=== PATIENT | male | born 1960 | race Asian ===

== ENCOUNTER 2019-02-16 16:35 | Inpatient (IN) | payer BC, OTHER ==
[~2019-02-16] VITALS: Ht 167.6 cm; Wt 62.0 kg
[~2019-02-16 16:35] MED LIST: VITAMINS DAILY
--- NOTE | 2019-02-16 19:58 | ERD ---
ER Documentation Chief Complaint Chief Complaint SIGNIFICANT BRIGHT RED BLOOD IN STOOL X 6 TIMES TODAY HPI The patient is a 58-year-old male, presenting to the ER because of bright red blood to 6 times today at home and 2 times in the ER. It all began about 3:3p pm today. He denies constipation, diarrhea, fever, chills, neck pain, chest pain, dyspnea, complains of vague abdominal pain, denies dysuria. He does not smoke, drinks socially Medical history/surgical history: None ROS All systems reviewed and are negative except as per history of present illness. Medications Home Meds Discontinued Reported Medications [Vitamins Daily] No Conflict Check 12/13/14 Allergies Allergies: Coded Allergies: No Known Drug Allergies (Unverified Allergy, Unknown, 02/16/19) PMhx/Soc History of Surgery: No Anesthesia Reaction: No Hx Neurological Disorder: No Hx Respiratory Disorders: No Hx Cardiac Disorders: No Hx Psychiatric Problems: No Hx Miscellaneous Medical Probl: No Hx Alcohol Use: Yes Hx Substance Use: No Hx Tobacco Use: No Physical Exam Vitals Vital Signs Date Temp Pulse Resp B/P (MAP) Pulse Ox O2 O2 Flow FiO2 Time Delivery Rate 02/16/19 100.8 108 16 184/99 99 16:52 (127) Physical Exam Const: No acute distress. Head: Atraumatic. Eyes: Normal Conjunctiva. ENT: Normal External Ears, Nose and Mouth. Neck: Full range of motion. No meningismus. Resp: Clear to auscultation bilaterally. Cardio: Regular rate and rhythm. Abd: Soft, non distended, normal bowel sounds, vague abdominal discomfort. Skin: No petechiae or rashes. Back: No midline or flank tenderness. Ext: No cyanosis, or edema. Neur: Awake and alert. No focal deficit Psych: Normal Mood and Affect. Rectal: No external hemorrhoid Result Diagram: 02/16/19200802/16/192008 Results 24 hrs Laboratory Tests Test 02/16/19 20:09 02/16/19 22:41 White Blood Count 10.2 10^3/ul Red Blood Count 4.51 10^6/ul Hemoglobin 13.4 g/dl Hematocrit 41.0 % Mean Corpuscular Volume 90.9 fl Mean Corpuscular Hemoglobin 29.7 pg Mean Corpuscular Hemoglobin Concent 32.7 g/dl Red Cell Distribution Width 11.9 % Platelet Count 229 10^3/UL Mean Platelet Volume 9.4 fl Immature Granulocytes % 0.600 % Neutrophils % 79.3 % Lymphocytes % 12.3 % Monocytes % 7.2 % Eosinophils % 0.3 % Basophils % 0.3 % Nucleated Red Blood Cells % 0.0 /100WBC Immature Granulocytes # 0.060 10^3/ul Neutrophils # 8.1 10^3/ul Lymphocytes # 1.3 10^3/ul Monocytes # 0.7 10^3/ul Eosinophils # 0.0 10^3/ul Basophils # 0.0 10^3/ul Nucleated Red Blood Cells # 0.0 10^3/ul Prothrombin Time 13.3 Sec Prothrombin Time Ratio 1.0 INR International Normalized Ratio 1.00 Activated Partial Thromboplast Time 28.5 Sec Sodium Level 139 mmol/L Potassium Level 3.9 mmol/L Chloride Level 104 mmol/L Carbon Dioxide Level 24 mmol/L Anion Gap 11 Blood Urea Nitrogen 13 mg/dl Creatinine 0.76 mg/dl Est Glomerular Filtrat Rate mL/min > 60 mL/min Glucose Level 151 mg/dl Calcium Level 9.2 mg/dl Total Bilirubin 0.7 mg/dl Direct Bilirubin 0.00 mg/dl Indirect Bilirubin 0.7 mg/dl Aspartate Amino Transf (AST/SGOT) 23 IU/L Alanine Aminotransferase (ALT/SGPT) 33 IU/L Alkaline Phosphatase 70 IU/L Troponin I < 0.012 ng/ml Total Protein 7.9 g/dl Albumin 4.7 g/dl Globulin 3.20 g/dl Albumin/Globulin Ratio 1.46 Urine Color YELLOW Urine Clarity CLEAR Urine pH 5.0 Urine Specific [place] 1.027 Urine Ketones NEGATIVE mg/dL Urine Nitrite NEGATIVE mg/dL Urine Bilirubin NEGATIVE mg/dL Urine Urobilinogen NEGATIVE mg/dL Urine Leukocyte Esterase NEGATIVE [place]/ul Urine Hemoglobin NEGATIVE mg/dL Urine Glucose NEGATIVE mg/dL Urine Total Protein NEGATIVE mg/dl Current Medications Medications Dose Sig/Nancy Start Time Status Last (Trade) Ordered Route PRN Stop Time Admin Dose Reason Admin Sodium 1,860 ml BOLUS OVER 2 02/16/19 DC 02/16/19 Chloride HOURS STAT 20:07 20:36 (NS) IV* 02/16/19 20:09 IV Flush 10 ml STK-MED 02/16/19 DC (NS 10 ml) ONCE .ROUTE 21:33 02/16/19 21:34 Sodium 100 ml @ ud STK-MED 02/16/19 DC Chloride ONCE .ROUTE 21:33 02/16/19 21:34 Iohexol 150 ml STK-MED 02/16/19 DC (Omnipaque ONCE .ROUTE 21:33 300mg/ ml) 02/16/19 21:34 Piperacillin 100 ml @ ONCE ONCE 02/16/19 UNV Sod/ 200 mls/hr IVPB 23:00 Tazobactam 02/16/19 23:29 Sod Procedures/MDM [place] [address] Radiology Main Line: [phone] DIAGNOSTIC IMAGING REPORT Patient: JORGITO MCKEON : 1960 Age: 58 Sex: M MR #: [id number] DOS: 02/16/192006 Ordering MD: LINDA STOKES MD Location: E/R Room/Bed: PROCEDURE: CT Abdomen and Pelvis With Intravenous Contrast CLINICAL INDICATION: Abdominal pain. Blood in stool. TECHNIQUE: Axial computed tomography images of the abdomen and pelvis with intravenous contrast. Sagittal and coronal reformatted images were created and reviewed. CTDIvol (mGy) = 4.72; total DLP (mGy-cm) = 273.09. This CT exam was performed using one or more of the following dose reduction techniques: automated exposure control, adjustment of the mA and/or kV according to patient size, and/or use of iterative reconstruction technique. DICOM images are available. CONTRAST: 80 mL of Omnipaque 300 was administered intravenously. COMPARISON: None FINDINGS: LUNG BASES: Unremarkable. No mass. No consolidation. ABDOMEN: LIVER: Several small hypodensities measuring up to 7 mm in diameter are scattered throughout the liver, likely representing small hepatic cysts. No acute hepatic abnormality is demonstrated. GALLBLADDER AND BILE DUCTS: Unremarkable. No calcified stones. No ductal dilation. PANCREAS: Unremarkable. No mass. No ductal dilation. SPLEEN: Unremarkable. No splenomegaly. ADRENALS: Unremarkable. No mass. KIDNEYS AND URETERS: Unremarkable. No solid mass. No hydronephrosis. STOMACH AND BOWEL: Mural thickening of the gastric antrum. This is suggestive of nonspecific gastritis. No gross focal ulcers are seen in this area. Mild mural thickening, mucosal enhancement, and air-fluid levels are noted in the descending and rectosigmoid portions of the colon, suspicious for nonspecific colitis. Mild diverticulosis of the colon. No findings of acute diverticulitis. No acute abnormality of the small bowel. No obstruction. PELVIS: APPENDIX: No findings to suggest acute appendicitis. BLADDER: Unremarkable. No mass. REPRODUCTIVE: Unremarkable as visualized. ABDOMEN and PELVIS: INTRAPERITONEAL SPACE: Unremarkable. No free air. No significant fluid collection. BONES/JOINTS: No acute fracture. No dislocation. SOFT TISSUES: Unremarkable. VASCULATURE: The abdominal aorta is atherosclerotic. No aneurysm. LYMPH NODES: Unremarkable. No enlarged lymph nodes. IMPRESSION: 1. Mural thickening of the gastric antrum. This is suggestive of nonspecific gastritis. No gross focal gastric ulcers are seen in this area. 2. Mild mural thickening, mucosal enhancement, and air-fluid levels are noted in the descending and rectosigmoid portions of the colon, suspicious for nonspecific colitis. 3. Mild diverticulosis of the colon. No findings of acute diverticulitis. 4. Several small hypodensities measuring up to 7 mm in diameter are scattered throughout the liver, likely representing small hepatic cysts. No acute abnormality demonstrated of the solid abdominal organs. RPTAT: [facility] David Magdaleno Physician Date Time Electronically viewed and signed by David Magdaleno Physician Tool Straightener on 02/16/2019 22:34 RmC/ CC: LINDA STOKES MD [id number] [place] [address] Radiology Main Line: [phone] DIAGNOSTIC IMAGING REPORT Patient: JORGITO MCKEON : 1960 Age: 58 Sex: M MR #: [id number] DOS: 02/16/192006 Ordering MD: LINDA STOKES MD Location: E/R Room/Bed: PROCEDURE: XR 1 view Chest. CLINICAL INDICATION: Sepsis. TECHNIQUE: Portable Single frontal view of the chest was obtained. COMPARISON: There are no similar studies submitted for comparison. FINDINGS: The heart is normal in size. There are mild aortic calcifications. There is no focal consolidation. There is no pleural effusion. No pneumothorax is identified. The osseous structures are intact. There is mild to moderate spondylosis/enthesopathy within the thoracic spine. IMPRESSION: No evidence for acute cardiopulmonary disease. Aortic calcifications. Further findings as detailed above. RPTAT: [facility] .Yoan Og MD, MD Date Time Electronically viewed and signed by .Yoan Og MD, MD on 02/16/2019 20:57 .F/ CC: LINDA STOKES MD [phone] MEDICAL MAKING DECISION: The patient is a 58-year-old male, presenting with acute colitis with moderate amount of rectal bleeding. He was treated with normosaline 30 mm/kg IV for clinical dehydration, Zosyn IV for acute colitis with good response. The differential diagnoses considered include but are not limited to the diverticulitis, AVM, GI malignancy, carcinoma, polyp, hemorrhoid, fissure, diverticulosis, angiodysplasia. Departure Diagnosis: Primary Impression: Colitis Additional Impression: Anemia Condition: Stable Comments I discussed the findings with the patient. I discussed the patient with the hospitalist Dr Bella at 11 pm who was made aware of the lab, the treatment, the patient condition. The patient is admitted to [facility] Disclaimer: Inadvertent spelling and grammatical errors are likely due to EHR/dictation software use and do not reflect on the overall quality of patient care. Also, please note that the electronic time recorded on this note does not necessarily reflect the actual time of the patient encounter. LINDA STOKES MD Feb 16, 2019 19:58
[2019-02-16] MEDS ORDERED: SODIUM CHLORIDE 0.9% 1L BAG IV* STA (20:07)
[2019-02-16] MEDS ORDERED: SOD CHLORIDE 0.9% 100 ML ONE (21:33)
[2019-02-16] MEDS ORDERED: IOHEXOL 300MG/ML 150 ML BTL ONE (21:33)
[2019-02-16 23:00] VITALS: BP 108/66; PULSE 103; RESP 20
[2019-02-16] MEDS ORDERED: PIPER-TAZO 3.375 GM IV (PMX) 100 ML IVPB ONE (23:00)
[2019-02-16] MEDS: SOD CHLORIDE 0.9% 1,000 ML IV SCH (23:22)
[2019-02-16] MEDS ORDERED: HYDROmorphONE 0.5 MG/0.5 ML SYG IV PRN (23:30)
[2019-02-16] MEDS ORDERED: ACETAMINOPHEN 325 MG TAB PO PRN (23:30)
[2019-02-16] MEDS ORDERED: DOCUSATE SODIUM 100 MG CAP PO PRN (23:30)
[2019-02-16] MEDS ORDERED: NACL 0.9% 3 ML SYG IV SCH (23:30)
[2019-02-16] MEDS ORDERED: BISACODYL (EC) 5 MG TAB PO PRN (23:30)
[2019-02-16] MEDS ORDERED: ONDANSETRON 4 MG INJ IV PRN (23:30)
[2019-02-17 00:24] VITALS: Ht 167.6 cm; Wt 62.0 kg
--- NOTE | 2019-02-17 06:20 | HP ---
Date/Time of Note Date/Time of Note DATE: 02/17/19 TIME: 06:15 Assessment/Plan VTE Prophylaxis SCD applied (from Nsg): Yes Pharmacological prophylaxis: NA/contraindicated Pharm contraindication: low risk/ambulating Lines/Catheters IV Catheter Type (from Nrsg): Peripheral IV Assessment/Plan Hospital Course This is a 58-year-old male being admitted to the [facility] floor for: #1 bright red blood per rectum: CT scan shows some mild mural wall thickening and nonspecific signs of colitis. At the current time we will trend CBC every 6 hours. Will check stool studies, fecal leukocytes, stool occult blood. Also check a ANCA. Will consult GI #2: sepsis: suspect GI source. blood cx ordered, will check stool studies. broad spectrum abx. #3 DVT GI prophylaxis: SCDs, no GI prophylaxis indicated Further treatment strategy will be implemented as per the clinical course. Result Diagram: 02/16/19200802/16/192008 Results 24hrs Laboratory Tests Test 02/16/19 20:09 02/16/19 22:41 02/17/19 01:01 White Blood Count 10.2 Red Blood Count 4.51 L Hemoglobin 13.4 L Hematocrit 41.0 L Mean Corpuscular Volume 90.9 Mean Corpuscular Hemoglobin 29.7 Mean Corpuscular Hemoglobin Concent 32.7 Red Cell Distribution Width 11.9 Platelet Count 229 Mean Platelet Volume 9.4 Immature Granulocytes % 0.600 H Neutrophils % 79.3 H Lymphocytes % 12.3 L Monocytes % 7.2 Eosinophils % 0.3 Basophils % 0.3 Nucleated Red Blood Cells % 0.0 Immature Granulocytes # 0.060 H Neutrophils # 8.1 H Lymphocytes # 1.3 Monocytes # 0.7 Eosinophils # 0.0 Basophils # 0.0 Nucleated Red Blood Cells # 0.0 Prothrombin Time 13.3 Prothrombin Time Ratio 1.0 INR International Normalized Ratio 1.00 Activated Partial Thromboplast Time 28.5 Sodium Level 139 Potassium Level 3.9 Chloride Level 104 Carbon Dioxide Level 24 Anion Gap 11 Blood Urea Nitrogen 13 Creatinine 0.76 Est Glomerular Filtrat Rate mL/min > 60 Glucose Level 151 Calcium Level 9.2 Total Bilirubin 0.7 Direct Bilirubin 0.00 Indirect Bilirubin 0.7 Aspartate Amino Transf (AST/SGOT) 23 Alanine Aminotransferase (ALT/SGPT) 33 Alkaline Phosphatase 70 Troponin I < 0.012 Total Protein 7.9 Albumin 4.7 Globulin 3.20 Albumin/Globulin Ratio 1.46 Urine Color YELLOW Urine Clarity CLEAR Urine pH 5.0 Urine Specific [place] 1.027 Urine Ketones NEGATIVE Urine Nitrite NEGATIVE Urine Bilirubin NEGATIVE Urine Urobilinogen NEGATIVE Urine Leukocyte Esterase NEGATIVE Urine Hemoglobin NEGATIVE Urine Glucose NEGATIVE Urine Total Protein NEGATIVE Lactic Acid Level 1.1 HPI/ROS Admit Date/Time Admit Date/Time Feb 16, 2019 at 22:59 Hx of Present Illness Chief complaint: Bright red blood per rectum this is a 58-year-old male with no past medical history who presented to the emergency department with symptoms of bright red blood per rectum. Patient states that yesterday he started having episodes of bright red blood per rectum starting at approximately 3 PM. He had 6 episodes occur at home. In the emergency department patient proceeded to have 3 more episodes of bright red blood per rectum. He denies any abdominal pain. Denies any nausea or vomiting. He states that he traveled to the [facility] in November and did have a cold over there but otherwise has not had any recent illnesses. Patient reports he last had a colonoscopy in 2016 and it was within normal values according to him. He does report that he had some lower back pain yesterday as well however he is not sure if that is from the gardening that he did. Allergies: NKDA Medications: None ROS Const: As per HPI Eyes : No pain discharge or redness or change in visual acuity ENT: No pain, sore throat, congestion, congestion, dysphagia or discharge Respiratory: No shortness of breath, cough, sputum, wheezing, or pleuritic pain Cardiovascular: No chest pain, palpitation, PND, or edema GI : As per HPI Genitourinary: No dysuria, hematuria, flank pain , discharge or CVA tenderness Musculoskeletal: No joint pain, back pain, neck pain, restricted range of motion in neck or joints Skin: No rash, bruising or hives Neuro: No headache, dizziness, syncope, seizure, focal weakness Endocrine: No polyuria, polydipsia, temperature intolerance Psych: No hallucination, depression, anxiety or suicidal ideation PMH/Family/Social Past Medical History Medical History: no pertinent history Medications Current Medications Sodium Chloride 1,000 ml @ 100 mls/hr Q10H IV Last administered on 02/16/19at 23:22; Admin Dose 100 MLS/HR; Start 02/16/19 at 23:02 IV Flush (NS 3 ml) 3 ml PER PROTOCOL IV ; Start 02/16/19 at 23:30 Ondansetron HCl (Zofran Inj) 4 mg Q6H PRN IV NAUSEA/VOMITING; Start 02/16/19 at 23:30 Acetaminophen (Tylenol Tab) 650 mg Q6H PRN PO .PAIN 1-3 OR TEMP; Start 02/16/19 at 23:30 Hydromorphone HCl (Dilaudid) 0.5 mg Q4H PRN IV .SEVERE PAIN 7-10; Start 02/16/19 at 23:30 Docusate Sodium (Colace) 100 mg Q12H PRN PO .CONSTIPATION; Start 02/16/19 at 23:30 Bisacodyl (Dulcolax) 5 mg DAILY PRN PO .CONSTIPATION; Start 02/16/19 at 23:30 Coded Allergies: No Known Drug Allergies (Unverified Allergy, Unknown, 02/16/19) Past Surgical History Past Surgical Hx: no surgical history Family History Significant Family History: no pertinent family hx Social History Alcohol Use: occasionally Smoking Status: Never smoker Drug Use: none Exam/Review of Systems Vital Signs Vitals Vital Signs Date Temp Pulse Resp B/P (MAP) Pulse Ox O2 O2 Flow FiO2 Time Delivery Rate 02/16/19 98.4 82 16 102/68 98 Room Air 23:52 (79) Exam Exam General: Patient is a pleasant male currently lying in bed in no acute distress HEENT: Atraumatic, normocephalic. The pupils are equal, round and reactive. Extraocular motor are intact Neck: Supple with full range of motion. No rigidity or meningismus Chest: Nontender Lungs: Clear to auscultation bilaterally no crackles rales or wheezing Heart: Normal S1-S2, Regular rhythm and rate. No murmur, S3, or S4 Musculoskeletal: Mild tenderness palpation over the lumbar spine Abdomen: Soft , nontender, nondistended , bowel sounds are present. No guarding no rebound tenderness , No masses or organomegaly. No costovertebral temporal angle mass Extremities: Normal to inspection, no edema no cyanosis Neurologic: Normal mental status, speech normal, cranial nerves II through XII are intact, motor and sensory are intact, Patient did show me a picture on his phone of his bloody bowel movement which did appear to be significant. Additional Comments PROCEDURE: CT Abdomen and Pelvis With Intravenous Contrast CLINICAL INDICATION: Abdominal pain. Blood in stool. TECHNIQUE: Axial computed tomography images of the abdomen and pelvis with intravenous contrast. Sagittal and coronal reformatted images were created and reviewed. CTDIvol (mGy) = 4.72; total DLP (mGy-cm) = 273.09. This CT exam was performed using one or more of the following dose reduction techniques: automated exposure control, adjustment of the mA and/or kV according to patient size, and/or use of iterative reconstruction technique. DICOM images are available. CONTRAST: 80 mL of Omnipaque 300 was administered intravenously. COMPARISON: None FINDINGS: LUNG BASES: Unremarkable. No mass. No consolidation. ABDOMEN: LIVER: Several small hypodensities measuring up to 7 mm in diameter are scattered throughout the liver, likely representing small hepatic cysts. No acute hepatic abnormality is demonstrated. GALLBLADDER AND BILE DUCTS: Unremarkable. No calcified stones. No ductal dilation. PANCREAS: Unremarkable. No mass. No ductal dilation. SPLEEN: Unremarkable. No splenomegaly. ADRENALS: Unremarkable. No mass. KIDNEYS AND URETERS: Unremarkable. No solid mass. No hydronephrosis. STOMACH AND BOWEL: Mural thickening of the gastric antrum. This is suggestive of nonspecific gastritis. No gross focal ulcers are seen in this area. Mild mural thickening, mucosal enhancement, and air-fluid levels are noted in the descending and rectosigmoid portions of the colon, suspicious for nonspecific colitis. Mild diverticulosis of the colon. No findings of acute diverticulitis. No acute abnormality of the small bowel. No obstruction. PELVIS: APPENDIX: No findings to suggest acute appendicitis. BLADDER: Unremarkable. No mass. REPRODUCTIVE: Unremarkable as visualized. ABDOMEN and PELVIS: INTRAPERITONEAL SPACE: Unremarkable. No free air. No significant fluid collection. BONES/JOINTS: No acute fracture. No dislocation. SOFT TISSUES: Unremarkable. VASCULATURE: The abdominal aorta is atherosclerotic. No aneurysm. LYMPH NODES: Unremarkable. No enlarged lymph nodes. IMPRESSION: 1. Mural thickening of the gastric antrum. This is suggestive of nonspecific gastritis. No gross focal gastric ulcers are seen in this area. 2. Mild mural thickening, mucosal enhancement, and air-fluid levels are noted in the descending and rectosigmoid portions of the colon, suspicious for nonspecific colitis. 3. Mild diverticulosis of the colon. No findings of acute diverticulitis. 4. Several small hypodensities measuring up to 7 mm in diameter are scattered throughout the liver, likely representing small hepatic cysts. No acute abnorm ality demonstrated of the solid abdominal organs. RPTAT: [facility] David Magdaleno Physician Ergonomics Technician Date Time Electronically viewed and signed by David Magdaleno, Physician Ergonomics Technician on 02/16/2019 22:34 RmC/ CC: LINDA STOKES MD [id number] PROCEDURE: XR 1 view Chest. CLINICAL INDICATION: Sepsis. TECHNIQUE: Portable Single frontal view of the chest was obtained. COMPARISON: There are no similar studies submitted for comparison. FINDINGS: The heart is normal in size. There are mild aortic calcifications. There is no focal consolidation. There is no pleural effusion. No pneumothorax is identified. The osseous structures are intact. There is mild to moderate spondylosis/enthesopathy within the thoracic spine. IMPRESSION: No evidence for acute cardiopulmonary disease. Aortic calcifications. Further findings as detailed above. RPTAT: [facility] .Yoan Og MD, Date Time Electronically viewed and signed by .Yoan Og MD, MD on 02/16/2019 20:57 .F/ CC: LINDA STOKES MD [id number] JAGUAR STREETER Feb 17, 2019 06:20
[2019-02-17 07:20] VITALS: BP 119/66; PULSE 67; RESP 18
[2019-02-17] MEDS: SOD CHLORIDE 0.9% 1,000 ML IV SCH ×2 (09:02→13:02)
[2019-02-17] MEDS ORDERED: POLYETHYLENE GLYCOL 3350 119 GM POWDER PO ONE ×4 (11:16→11:30)
--- NOTE | 2019-02-17 12:04 | CONS ---
DATE OF ADMISSION: 02/16/2019 DATE OF CONSULTATION: Dear Dr. Streeter: Thank you for asking me to see Mr. Maradiaga in GI consultation. As you know, patient is a 58-year-old Ethiopian gentleman started having bleeding from the rectum yest erday. He had a bright red blood from the rectum. Stool was not watery, is regular stools. No naus ea, no vomiting, no hematemesis, no history of prior problems of this kind. In 2017, he had a normal colonoscopy. REVIEW OF SYSTEMS: Essentially unremarkable. SOCIAL HISTORY: Drinks alcohol occasionally. He does not take any nonsteroidal anti-inflammatory dr ugs. He works as a caregiver. As far as the previous medical history is concerned, he has not had any surgery. MEDICATIONS PRIOR TO THIS ADMISSION: He does not take any medications as an outpatient. Currently, he is on: 1. Tylenol. 2. Dilaudid. 3. Dulcolax. 4. Colace. 5. Zofran. FAMILY HISTORY: No medical problems. PHYSICAL EXAMINATION: GENERAL: The patient is a 58-year-old Ethiopian gentleman who, at this time, is very alert, well buil t. VITAL SIGNS: Temperature 99, pulse is 67, blood pressure 119/66. CARDIOVASCULAR: Normal heart sounds. RESPIRATORY: Normal breath sounds. ABDOMEN: Showed unremarkable findings. CAT scan of the abdomen shows evidence of mural thickening o f the stomach, mural thickening of the colonic mucosa, in the area of the sigmoid colon and descendin g colon, mild diverticulosis noted, several small hypodensities noted in the liver which could be hep atic cysts. LABORATORY WORKUP: Hemoglobin dropped to 8.5 from 13.4. Coagulation: Prothrombin time 13.3, INR is 1.0, platelet count 174,000. IMAGING STUDIES: Chest x-ray is unremarkable except aortic calcification. CLINICAL IMPRESSION: The patient presenting with history of rectal bleeding. It is quite possible w e may be dealing with some kind of a colitis or diverticulosis, which could be the cause of the bleed ing. Colorectal neoplasm should be ruled out. He has got a gastric wall mural thickening, rule out gastritis or malignancy. PLAN: Recommend upper endoscopy as well as lower endoscopy. Once again, Dr. Streeter, thank you for this consultation. Dictated By: BONITA KINGSTON/ROOPA Conf#: [id number] DID#: [id number] CC: JAGUAR STREETER MD;*[facility]*
[2019-02-17 14:15] VITALS: BP 147/83; PULSE 70; RESP 16
--- NOTE | 2019-02-17 16:10 | PN ---
Date/Time of Note Date/Time of Note DATE: 02/17/19 TIME: 16:09 Assessment/Plan VTE Prophylaxis Risk score (from Ns)>0 risk: 0 SCD applied (from Ns): Yes Pharmacological prophylaxis: NA/contraindicated Pharm contraindication: bleeding Lines/Catheters IV Catheter Type (from [facility]): Peripheral IV Assessment/Plan Hospital Course SUBJECTIVE: Denies any abdominal pain. Patient getting blood transfusions. OBJECTIVE: Physical Exam General: Adequately build 58 year-old male lying in bed in no apparent distress. HEENT: Normocephalic, atraumatic. Eyes: Anicteric sclerae, conjunctivae clear. ENT: Nasal septum midline, oral mucosa moist. Neck supple, no JVD noticed. Respiratory: Bilaterally clear breath sounds. No use of accessory muscles of respiration. No adventitious breath sounds. Cardiovascular: S1, S2 heard. Regular rate and rhythm. Abdomen: Soft, nontender, and nondistended. Bowel sounds positive in all 4 quadrants. Genitourinary: Deferred. Extremities: No cyanosis, no clubbing, no edema. Peripheral pulses palpable. Neurologic: Cranial nerves II through XII grossly intact. The patient is awake, alert, and oriented. Skin: Normal skin turgor. No skin rashes. Labs & Vitals per chart ASSESSMENT & PLAN 58-year-old male who denied any significant past medical history, who came to the emergency room with chief complaint of bright red blood per rectum with CT scan of the abdomen and pelvis showing mild thickening of the gastric antrum, mild mural thickening, mucosal enhancement, and air-fluid levels noted in the descending and rectosigmoid portions of the colon, suspicious for nonspecific colitis. The patient was admitted to inpatient setting for further treatment and evaluation. 1. Hematochezia. -Etiology unclear. -Transfuse blood products as indicated. -Gastroenterology evaluation ongoing. -Plan for esophagogastroduodenoscopy and colonoscopy on 02/18/2019. -Continue antimicrobials for any underlying colitis. Stool studies pending. 2. Anemia of acute blood loss. -Continue to transfuse blood products as needed. 3. Fluids, electrolytes, and nutrition. -Clear liquid diet. -N.p.o. after midnight. 4. DVT prophylaxis. -Bilateral SCDs 5. Plan. -Continue to monitor H&H closely. -Replace blood products as needed. -Await esophagogastroduodenoscopy and colonoscopy. The patient was seen in collaboration with Dr. Hardin. Result Diagram: 02/17/19 1058 02/17/19 0529 Results 24hrs Laboratory Tests Test 02/16/19 20:09 02/16/19 22:41 02/17/19 01:00 02/17/19 01:01 White Blood Count 10.2 Red Blood Count 4.51 L Hemoglobin 13.4 L Hematocrit 41.0 L Mean Corpuscular 90.9 Volume Mean Corpuscular 29.7 Hemoglobin Mean Corpuscular 32.7 Hemoglobin Concent Red Cell 11.9 Distribution Width Platelet Count 229 Mean Platelet Volume 9.4 Immature 0.600 H Granulocytes % Neutrophils % 79.3 H Lymphocytes % 12.3 L Monocytes % 7.2 Eosinophils % 0.3 Basophils % 0.3 Nucleated Red Blood 0.0 Cells % Immature 0.060 H Granulocytes # Neutrophils # 8.1 H Lymphocytes # 1.3 Monocytes # 0.7 Eosinophils # 0.0 Basophils # 0.0 Nucleated Red Blood 0.0 Cells # Prothrombin Time 13.3 Prothrombin Time 1.0 Ratio INR International 1.00 Normalized Ratio Activated 28.5 Partial Thromboplast Time Sodium Level 139 Potassium Level 3.9 Chloride Level 104 Carbon Dioxide Level 24 Anion Gap 11 Blood Urea Nitrogen 13 Creatinine 0.76 Est Glomerular > 60 Filtrat Rate mL/min Glucose Level 151 Calcium Level 9.2 Total Bilirubin 0.7 Direct Bilirubin 0.00 Indirect Bilirubin 0.7 Aspartate Amino 23 Transf (AST/SGOT) Alanine 33 Aminotransferase (AL T/SGPT) Alkaline Phosphatase 70 Troponin I < 0.012 Total Protein 7.9 Albumin 4.7 Globulin 3.20 Albumin/Globulin 1.46 Ratio Urine Color YELLOW Urine Clarity CLEAR Urine pH 5.0 Urine Specific 1.027 [place] Urine Ketones NEGATIVE Urine Nitrite NEGATIVE Urine Bilirubin NEGATIVE Urine Urobilinogen NEGATIVE Urine Leukocyte NEGATIVE Esterase Urine Hemoglobin NEGATIVE Urine Glucose NEGATIVE Urine Total Protein NEGATIVE Stool Occult Blood POSITIVE Lactic Acid Level 1.1 Test 02/17/19 05:29 02/17/19 10:58 White Blood Count 5.4 # 4.3 #L Red Blood Count 2.86 #L 2.53 L Hemoglobin 8.5 #L 7.5 L Hematocrit 26.4 #L 23.3 L Mean Corpuscular 92.3 92.1 Volume Mean Corpuscular 29.7 29.6 Hemoglobin Mean Corpuscular 32.2 32.2 Hemoglobin Concent Red Cell 12.0 11.9 Distribution Width Platelet Count 174 # 145 Mean Platelet Volume 10.2 9.1 Immature 0.400 0.200 Granulocytes % Neutrophils % 71.4 57.1 Lymphocytes % 18.6 30.4 Monocytes % 8.6 10.2 Eosinophils % 0.6 1.9 Basophils % 0.4 0.2 Nucleated Red Blood 0.0 0.0 Cells % Immature 0.020 0.010 Granulocytes # Neutrophils # 3.9 2.5 Lymphocytes # 1.0 1.3 Monocytes # 0.5 0.4 Eosinophils # 0.0 0.1 Basophils # 0.0 0.0 Nucleated Red Blood 0.0 0.0 Cells # Sodium Level 141 Potassium Level 3.8 Chloride Level 111 H Carbon Dioxide Level 25 Anion Gap 5 Blood Urea Nitrogen 9 Creatinine 0.70 Est Glomerular > 60 Filtrat Rate mL/min Glucose Level 114 Hemoglobin A1c 5.7 Calcium Level 7.5 L Magnesium Level 1.7 Total Bilirubin 0.7 Direct Bilirubin 0.00 Indirect Bilirubin 0.7 Aspartate Amino 14 L Transf (AST/SGOT) Alanine 32 Aminotransferase (AL T/SGPT) Alkaline Phosphatase 46 Total Protein 5.1 #L Albumin 3.0 #L Globulin 2.10 Albumin/Globulin 1.42 Ratio Triglycerides Level 86 Cholesterol Level 125 LDL Cholesterol, 64 Calculated HDL Cholesterol 44 Cholesterol/HDL 2.8 Ratio Thyroid Stimulating 1.410 Hormone (TSH) Exam/Review of Systems Exam Vitals Vital Signs Date Temp Pulse Resp B/P (MAP) Pulse Ox O2 O2 Flow FiO2 Time Delivery Rate 02/17/19 98.4 70 16 147/83 100 Room Air 14:15 (104) Results Results 24hrs Laboratory Tests Test 02/16/19 20:09 02/16/19 22:41 02/17/19 01:00 02/17/19 01:01 White Blood Count 10.2 Red Blood Count 4.51 L Hemoglobin 13.4 L Hematocrit 41.0 L Mean Corpuscular 90.9 Volume Mean Corpuscular 29.7 Hemoglobin Mean Corpuscular 32.7 Hemoglobin Concent Red Cell 11.9 Distribution Width Platelet Count 229 Mean Platelet Volume 9.4 Immature 0.600 H Granulocytes % Neutrophils % 79.3 H Lymphocytes % 12.3 L Monocytes % 7.2 Eosinophils % 0.3 Basophils % 0.3 Nucleated Red Blood 0.0 Cells % Immature 0.060 H Granulocytes # Neutrophils # 8.1 H Lymphocytes # 1.3 Monocytes # 0.7 Eosinophils # 0.0 Basophils # 0.0 Nucleated Red Blood 0.0 Cells # Prothrombin Time 13.3 Prothrombin Time 1.0 Ratio INR International 1.00 Normalized Ratio Activated 28.5 Partial Thromboplast Time Sodium Level 139 Potassium Level 3.9 Chloride Level 104 Carbon Dioxide Level 24 Anion Gap 11 Blood Urea Nitrogen 13 Creatinine 0.76 Est Glomerular > 60 Filtrat Rate mL/min Glucose Level 151 Calcium Level 9.2 Total Bilirubin 0.7 Direct Bilirubin 0.00 Indirect Bilirubin 0.7 Aspartate Amino 23 Transf (AST/SGOT) Alanine 33 Aminotransferase (AL T/SGPT) Alkaline Phosphatase 70 Troponin I < 0.012 Total Protein 7.9 Albumin 4.7 Globulin 3.20 Albumin/Globulin 1.46 Ratio Urine Color YELLOW Urine Clarity CLEAR Urine pH 5.0 Urine Specific 1.027 [place] Urine Ketones NEGATIVE Urine Nitrite NEGATIVE Urine Bilirubin NEGATIVE Urine Urobilinogen NEGATIVE Urine Leukocyte NEGATIVE Esterase Urine Hemoglobin NEGATIVE Urine Glucose NEGATIVE Urine Total Protein NEGATIVE Stool Occult Blood POSITIVE Lactic Acid Level 1.1 Test 02/17/19 05:29 02/17/19 10:58 White Blood Count 5.4 # 4.3 #L Red Blood Count 2.86 #L 2.53 L Hemoglobin 8.5 #L 7.5 L Hematocrit 26.4 #L 23.3 L Mean Corpuscular 92.3 92.1 Volume Mean Corpuscular 29.7 29.6 Hemoglobin Mean Corpuscular 32.2 32.2 Hemoglobin Concent Red Cell 12.0 11.9 Distribution Width Platelet Count 174 # 145 Mean Platelet Volume 10.2 9.1 Immature 0.400 0.200 Granulocytes % Neutrophils % 71.4 57.1 Lymphocytes % 18.6 30.4 Monocytes % 8.6 10.2 Eosinophils % 0.6 1.9 Basophils % 0.4 0.2 Nucleated Red Blood 0.0 0.0 Cells % Immature 0.020 0.010 Granulocytes # Neutrophils # 3.9 2.5 Lymphocytes # 1.0 1.3 Monocytes # 0.5 0.4 Eosinophils # 0.0 0.1 Basophils # 0.0 0.0 Nucleated Red Blood 0.0 0.0 Cells # Sodium Level 141 Potassium Level 3.8 Chloride Level 111 H Carbon Dioxide Level 25 Anion Gap 5 Blood Urea Nitrogen 9 Creatinine 0.70 Est Glomerular > 60 Filtrat Rate mL/min Glucose Level 114 Hemoglobin A1c 5.7 Calcium Level 7.5 L Magnesium Level 1.7 Total Bilirubin 0.7 Direct Bilirubin 0.00 Indirect Bilirubin 0.7 Aspartate Amino 14 L Transf (AST/SGOT) Alanine 32 Aminotransferase (AL T/SGPT) Alkaline Phosphatase 46 Total Protein 5.1 #L Albumin 3.0 #L Globulin 2.10 Albumin/Globulin 1.42 Ratio Triglycerides Level 86 Cholesterol Level 125 LDL Cholesterol, 64 Calculated HDL Cholesterol 44 Cholesterol/HDL 2.8 Ratio Thyroid Stimulating 1.410 Hormone (TSH) Medications Medication Current Medications Sodium Chloride 1,000 ml @ 100 mls/hr Q10H IV Last administered on 02/17/19at 13:02; Admin Dose 100 MLS/HR; Start 02/16/19 at 23:02 IV Flush (NS 3 ml) 3 ml PER PROTOCOL IV ; Start 02/16/19 at 23:30 Ondansetron HCl (Zofran Inj) 4 mg Q6H PRN IV NAUSEA/VOMITING; Start 02/16/19 at 23:30 Acetaminophen (Tylenol Tab) 650 mg Q6H PRN PO .PAIN 1-3 OR TEMP; Start 02/16/19 at 23:30 Hydromorphone HCl (Dilaudid) 0.5 mg Q4H PRN IV .SEVERE PAIN 7-10; Start 02/16/19 at 23:30 Docusate Sodium (Colace) 100 mg Q12H PRN PO .CONSTIPATION; Start 02/16/19 at 23:30 Bisacodyl (Dulcolax) 5 mg DAILY PRN PO .CONSTIPATION; Start 02/16/19 at 23:30 ABIOLA GUALLPA NP Feb 17, 2019 16:10
--- NOTE | 2019-02-17 17:15 | PREAC ---
Date/Time of Note Date/Time of Note DATE: 02/17/19 TIME: 17:14 Anesthesia Eval and Record Evaluation Time Pre-Procedure Interview DATE: 02/17/19 TIME: 17:14 Age 58 Sex male NPO: 8 hrs Preoperative diagnosis history of rectal bleeding. Planned procedure EGD / Colonoscopy Past Medical History Past Medical History: Includes Heme: Anemia Surgery & Anesthesia Issues No known issue Meds Anticoagulation: No Beta Grace within 24 hr: No Reason Beta Grace not given: Pt. not on B-Grace Discontinued Reported Medications [Vitamins Daily] No Conflict Check 12/13/14 Current Medications Sodium Chloride 1,000 ml @ 100 mls/hr Q10H IV Last administered on 02/17/19at 13:02; Admin Dose 100 MLS/HR; Start 02/16/19 at 23:02 IV Flush (NS 3 ml) 3 ml PER PROTOCOL IV ; Start 02/16/19 at 23:30 Ondansetron HCl (Zofran Inj) 4 mg Q6H PRN IV NAUSEA/VOMITING; Start 02/16/19 at 23:30 Acetaminophen (Tylenol Tab) 650 mg Q6H PRN PO .PAIN 1-3 OR TEMP; Start 02/16/19 at 23:30 Hydromorphone HCl (Dilaudid) 0.5 mg Q4H PRN IV .SEVERE PAIN 7-10; Start 02/16/19 at 23:30 Docusate Sodium (Colace) 100 mg Q12H PRN PO .CONSTIPATION; Start 02/16/19 at 23:30 Bisacodyl (Dulcolax) 5 mg DAILY PRN PO .CONSTIPATION; Start 02/16/19 at 23:30 Ciprofloxacin/ Dextrose 200 ml @ 200 mls/hr Q12 IVPB ; Start 02/17/19 at 21:00 Metronidazole 100 ml @ 100 mls/hr Q8 IVPB ; Start 02/17/19 at 17:00 Meds reviewed: Yes Allergies Coded Allergies: No Known Drug Allergies (Unverified Allergy, Unknown, 02/16/19) Allergies Reviewed: Yes Labs/Studies Labs Reviewed: Reviewed by anesthesiologist Result Diagram: 02/17/19 1058 02/17/19 0529 Laboratory Tests 02/17/19 05:29 02/17/19 10:58 Blood Bank Test 02/17/19 05:29 Antibody Screen NEGATIVE Blood Product Summary Counts Blood Type B POSITIVE Crossmatch Red Blood Cells test: N/A Studies: ECG (SR), CXR (No evidence for acute cardiopulmonary disease. ) Pre-procedure Exam Last vitals Vital Signs Date Temp Pulse Resp B/P (MAP) Pulse Ox O2 O2 Flow FiO2 Time Delivery Rate 02/17/19 98.4 70 16 147/83 100 Room Air 14:15 (104) Airway: Adequate mouth opening Mallampati: Mallampati II Teeth: Normal Lung: Normal Heart: Normal ASA Physical Status ASA physical status: 2 Emergency: None Pre-operative Attestations Prior to commencing anesthesia and surgery, the patient was re-evaluated, there was verification of: *The patient's identity *The results of appropriate recent lab work and preoperative vital signs *The above evaluation not changing prior to induction *Anesthetic plan, risk benefits, alternative and complications discussed with patient/family; questions answered; patient/family understands, accepts and wishes to proceed. ARABELLA BOLAND Feb 17, 2019 17:15
[2019-02-17] MEDS: metroNIDAZOLE 500 MG/NS (PMX) 100 ML IVPB SCH ×2 (17:57→23:00)
[2019-02-17 20:00] VITALS: BP 134/78; PULSE 64; RESP 18
[2019-02-17] MEDS: CIPROFLOXACIN 400MG/D5W 200 ML IVPB SCH (20:58)
[2019-02-17] MEDS ORDERED: POLYETHYLENE GLYCOL 17 GM PACKET ONE (23:04)
[2019-02-18] VITALS (11 sets, daily range): BP systolic 106–146; BP diastolic 66–84; PULSE 55–100; RESP 13–20
[2019-02-18] MEDS: SOD CHLORIDE 0.9% 1,000 ML IV SCH ×2 (04:52→14:28)
[2019-02-18] MEDS: metroNIDAZOLE 500 MG/NS (PMX) 100 ML IVPB SCH ×2 (05:51→14:28)
[2019-02-18] MEDS: CIPROFLOXACIN 400MG/D5W 200 ML IVPB SCH (09:16)
[2019-02-18] MEDS ORDERED: PROPOFOL 20 ML ONE (12:11)
[2019-02-18] MEDS ORDERED: FENTAnyl 50 MCG/ML VIAL ONE (12:12)
[2019-02-18] MEDS ORDERED: ONDANSETRON 4 MG INJ IV PRN (12:30)
--- NOTE | 2019-02-18 15:51 | PN ---
Date/Time of Note Date/Time of Note DATE: 02/18/19 TIME: 15:49 Assessment/Plan VTE Prophylaxis Risk score (from Ns)>0 risk: 0 SCD applied (from Ns): Yes Pharmacological prophylaxis: NA/contraindicated Pharm contraindication: low risk/ambulating Lines/Catheters IV C[facility] Type (from [facility]): Peripheral IV Assessment/Plan Hospital Course SUBJECTIVE: Denies any abdominal pain. OBJECTIVE: Physical Exam General: Adequately build 58 year-old male lying in bed in no apparent distress. HEENT: Normocephalic, atraumatic. Eyes: Anicteric sclerae, conjunctivae clear. ENT: Nasal septum midline, oral mucosa moist. Neck supple, no JVD noticed. Respiratory: Bilaterally clear breath sounds. No use of accessory muscles of respiration. No adventitious breath sounds. Cardiovascular: S1, S2 heard. Regular rate and rhythm. Abdomen: Soft, nontender, and nondistended. Bowel sounds positive in all 4 quadrants. Genitourinary: Deferred. Extremities: No cyanosis, no clubbing, no edema. Peripheral pulses palpable. Neurologic: Cranial nerves II through XII grossly intact. The patient is awake, alert, and oriented. Skin: Normal skin turgor. No skin rashes. Labs & Vitals per chart ASSESSMENT & PLAN 58-year-old male who denied any significant past medical history, who came to the emergency room with chief complaint of bright red blood per rectum with CT scan of the abdomen and pelvis showing mild thickening of the gastric antrum, mild mural thickening, mucosal enhancement, and air-fluid levels noted in the descending and rectosigmoid portions of the colon, suspicious for nonspecific colitis. The patient was admitted to inpatient setting for further treatment and evaluation. 1. Hematochezia. -Etiology unclear. -Transfuse blood products as indicated. -Gastroenterology evaluation ongoing. 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 -Continue PPI. -Status post colonoscopy on 02/18/2019 that showed blood hole along the colon from sigmoid to cecum with underlying diverticulosis, which may be the source of bleeding. - Stool studies negative. Discontinue antimicrobials. 2. Anemia of acute blood loss. -Continue to transfuse blood products as needed. 3. Fluids, electrolytes, and nutrition. -Full liquid diet. 4. DVT prophylaxis. -Bilateral SCDs 5. Plan. -Continue to monitor H&H closely. -Replace blood products as needed. -Advance the diet if no more bleeding and discharge the patient in 24 hours. -Discontinue antimicrobials. Case discussed with gastroenterology Dr. Sinha The patient was seen in collaboration with Dr. Hardin. The plan of care was explained to the patient and the patient's family Result Diagram: 02/18/19 0004 02/18/19 0606 Results 24hrs Laboratory Tests Test 02/18/19 00:04 02/18/19 06:06 White Blood Count 3.9 L Red Blood Count 3.22 #L Hemoglobin 9.6 #L Hematocrit 29.4 #L Mean Corpuscular Volume 91.3 Mean Corpuscular Hemoglobin 29.8 Mean Corpuscular Hemoglobin Concent 32.7 Red Cell Distribution Width 12.2 Platelet Count 149 Mean Platelet Volume 9.9 Immature Granulocytes % 0.300 Neutrophils % 39.9 Lymphocytes % 42.2 Monocytes % 11.4 H Eosinophils % 5.7 Basophils % 0.5 Nucleated Red Blood Cells % 0.0 Immature Granulocytes # 0.010 Neutrophils # 1.5 L Lymphocytes # 1.6 Monocytes # 0.4 Eosinophils # 0.2 Basophils # 0.0 Nucleated Red Blood Cells # 0.0 Sodium Level 143 Potassium Level 3.7 Chloride Level 113 H Carbon Dioxide Level 24 Anion Gap 6 Blood Urea Nitrogen 4 L Creatinine 0.64 Est Glomerular Filtrat Rate mL/min > 60 Glucose Level 98 Calcium Level 8.1 L Phosphorus Level 2.9 Magnesium Level 1.9 Total Bilirubin 0.4 Direct Bilirubin 0.00 Indirect Bilirubin 0.4 Aspartate Amino Transf (AST/SGOT) 28 # Alanine Aminotransferase (ALT/SGPT) 34 Alkaline Phosphatase 45 Total Protein 5.3 L Albumin 3.0 L Globulin 2.30 Albumin/Globulin Ratio 1.30 Exam/Review of Systems Exam Vitals Vital Signs Date Temp Pulse Resp B/P (MAP) Pulse Ox O2 O2 Flow FiO2 Time Delivery Rate 02/18/19 98.1 69 18 146/83 96 14:00 (104) 02/18/19 Room Air 13:17 Intake and Output 02/17/19 02/17/19 02/18/19 1515:00 23:00 07:00 IntakeIntake Total 1350 ml 1270 ml 550 ml BalanceBalance 1350 ml 1270 ml 550 ml Results Results 24hrs Laboratory Tests Test 02/18/19 00:04 02/18/19 06:06 White Blood Count 3.9 L Red Blood Count 3.22 #L Hemoglobin 9.6 #L Hematocrit 29.4 #L Mean Corpuscular Volume 91.3 Mean Corpuscular Hemoglobin 29.8 Mean Corpuscular Hemoglobin Concent 32.7 Red Cell Distribution Width 12.2 Platelet Count 149 Mean Platelet Volume 9.9 Immature Granulocytes % 0.300 Neutrophils % 39.9 Lymphocytes % 42.2 Monocytes % 11.4 H Eosinophils % 5.7 Basophils % 0.5 Nucleated Red Blood Cells % 0.0 Immature Granulocytes # 0.010 Neutrophils # 1.5 L Lymphocytes # 1.6 Monocytes # 0.4 Eosinophils # 0.2 Basophils # 0.0 Nucleated Red Blood Cells # 0.0 Sodium Level 143 Potassium Level 3.7 Chloride Level 113 H Carbon Dioxide Level 24 Anion Gap 6 Blood Urea Nitrogen 4 L Creatinine 0.64 Est Glomerular Filtrat Rate mL/min > 60 Glucose Level 98 Calcium Level 8.1 L Phosphorus Level 2.9 Magnesium Level 1.9 Total Bilirubin 0.4 Direct Bilirubin 0.00 Indirect Bilirubin 0.4 Aspartate Amino Transf (AST/SGOT) 28 # Alanine Aminotransferase (ALT/SGPT) 34 Alkaline Phosphatase 45 Total Protein 5.3 L Albumin 3.0 L Globulin 2.30 Albumin/Globulin Ratio 1.30 Medications Medication Current Medications Sodium Chloride 1,000 ml @ 100 mls/hr Q10H IV Last administered on 02/17/19at 13:02; Admin Dose 100 MLS/HR; Start 02/16/19 at 23:02 IV Flush (NS 3 ml) 3 ml PER PROTOCOL IV ; Start 02/16/19 at 23:30 Ondansetron HCl (Zofran Inj) 4 mg Q6H PRN IV NAUSEA/VOMITING; Start 02/16/19 at 23:30 Acetaminophen (Tylenol Tab) 650 mg Q6H PRN PO .PAIN 1-3 OR TEMP; Start 02/16/19 at 23:30 Hydromorphone HCl (Dilaudid) 0.5 mg Q4H PRN IV .SEVERE PAIN 7-10; Start 02/16/19 at 23:30 Docusate Sodium (Colace) 100 mg Q12H PRN PO .CONSTIPATION; Start 02/16/19 at 23:30 Bisacodyl (Dulcolax) 5 mg DAILY PRN PO .CONSTIPATION; Start 02/16/19 at 23:30 Ciprofloxacin/ Dextrose 200 ml @ 200 mls/hr Q12 IVPB Last administered on 02/18/19at 09:16; Admin Dose 200 MLS/HR; Start 02/17/19 at 21:00 Metronidazole 100 ml @ 100 mls/hr Q8 IVPB Last administered on 02/18/19at 14:28; Admin Dose 100 MLS/HR; Start 02/17/19 at 17:00 Ondansetron HCl (Zofran Inj) 4 mg PACU ORDER PRN IV NAUSEA/VOMITING; Start 02/18/19 at 12:30; Stop 02/18/19 at 16:30 ABIOLA GUALLPA NP Feb 18, 2019 15:51
--- NOTE | 2019-02-18 17:35 | PAC ---
Date/Time of Note Date/Time of Note DATE: 02/18/19 TIME: 17:34 Post-Anesthesia Notes Post-Anesthesia Note Last documented vital signs Vital Signs Date Temp Pulse Resp B/P (MAP) Pulse Ox O2 O2 Flow FiO2 Time Delivery Rate 02/18/19 98.1 69 18 146/83 96 14:00 (104) 02/18/19 Room Air 13:17 Activity: WNL Respiratory function: WNL Cardiovascular function: WNL Mental status: Baseline Pain reasonably controlled: Yes Hydration appropriate: Yes Nausea/Vomiting absent: No MARIPOSA YOUNG MD Feb 18, 2019 17:34
[2019-02-19 02:13] VITALS: BP 110/62; PULSE 62; RESP 18
[2019-02-19 08:38] VITALS: BP 127/73; PULSE 73; RESP 17
[2019-02-19] MEDS ORDERED: OMEP40CA6 PO (12:07)
--- NOTE | 2019-02-19 12:38 | PDOCDIS ---
Discharge Instructions CONDITION [id number] Patient Condition: [id number] Stable HOME CARE INSTRUCTIONS: [id number] Special Diet: [id number] Diverticulosis diet. ACTIVITY: [id number] Activity Restrictions: [id number] No Restrictions FOLLOW UP/APPOINTMENTS Follow-up Plan Min Sinha MD Specialty: Gastroenterology Office Address [address] [place] [address] Office OTHER ORDERS: Other Orders: 1. Take medication as per prescription (Omeprazole for gastric erosions and Flagyl for Giardiasis). 2. Take a diet that is appropriate for diverticulosis. 3. Resume activities as tolerated. 4. Follow-up with Dr. Sinha to go through the biopsy results from biopsy during endoscopy. 5. Please go to the nearest ER if you have any blood in stool, black tarry stools, or any other unusual signs/symptoms. ABIOLA GUALLPA NP Feb 19, 2019 12:38
[2019-02-19] MEDS ORDERED: METR500T PO (12:39)
--- NOTE | 2019-02-19 12:50 | DS ---
Date/Time of Note Date/Time of Note DATE: 02/19/19 TIME: 12:46 Discharge Summary Admission/Discharge Info Admit Date/Time Feb 16, 2019 at 22:59 Discharge Date/Time Discharge Diagnosis 1. Hematochezia. 2. Diverticulosis. 3. Giardiasis. 4. Gastric antral erosions. 5. Anemia of acute blood loss. Patient Condition: Stable Consults 1. Min Sinha MD, Gastroenterology. Procedures Esophagogastroduodenoscopy on 02/18/2019 Impression: Diaphragmatic hernia without obstruction or gangrene. Multiple antral erosions. Colonoscopy on 02/18/2019 Impression: Hemorrhoids. Blood noted all along the colon from sigmoid to cecum. Diverticulosis. CT Abdomen & Pelvis IMPRESSION: 1. Mural thickening of the gastric antrum. This is suggestive of nonspecific gastritis. No gross focal gastric ulcers are seen in this area. 2. Mild mural thickening, mucosal enhancement, and air-fluid levels are noted in the descending and rectosigmoid portions of the colon, suspicious for nonspecific colitis. 3. Mild diverticulosis of the colon. No findings of acute diverticulitis. 4. Several small hypodensities measuring up to 7 mm in diameter are scattered throughout the liver, likely representing small hepatic cysts. No acute abnormality demonstrated of the solid abdominal organs. Hx of Present Illness This is a 58-year-old male who denied any significant past medical history, who came to the emergency room with chief complaint of bright red blood per rectum with CT scan of the abdomen and pelvis showing mild thickening of the gastric antrum, mild mural thickening, mucosal enhancement, and air-fluid levels noted in the descending and rectosigmoid portions of the colon, suspicious for nonspecific colitis. The patient was admitted to inpatient setting for further treatment and evaluation. Hospital Course The patient was started on empiric antimicrobial therapy for any underlying infectious colitis. Stool studies were sent including stool for C. diff. A gastroenterology consult was obtained. The patient underwent an es ophagogastroduodenoscopy on 02/18/2019 that showed diaphragmatic hernia without obstruction or gangrene. The esophagogastroduodenoscopy revealed multiple antral erosions. Biopsies were taken. Biopsy results are pending at this time. Gastroenterology recommended use of proton pump inhibitors. The patient underwent a colonoscopy on 02/18/2019 that showed blood hole along the colon from sigmoid to cecum with underlying diverticulosis. The patient's hematochezia could have been most probably secondary to a bleeding diverticulum. The patient had evidence of underlying anemia of acute blood loss. The patient received a 2 units of PRBC transfusion. The patient's stool for OB x1 was positive. Meanwhile, the patient's stool for diarrhea showed positive for Gi ardia. Therefore, the patient will be maintained on Flagyl therapy for 7 days for eradication. The patient does not have any symptomatic family members/immunocompromised members who need prophylactic antimicrobial therapy as per recommendations. After the esophagogastroduodenoscopy and colonoscopy, the patient's H&H remained stable. The patient did not have any more episodes of hematochezia. The patient will be discharged home, to be followed up with outpatient gastroenterology. Registered dietitian consult was obtained for instructing the patient on a diverticular diet. Discharge Instructions 1. Take medication as per prescription (Omeprazole for gastric erosions and Flagyl for Giardiasis). 2. Take a diet that is appropriate for diverticulosis. 3. Resume activities as tolerated. 4. Follow-up with Dr. Sinha to go through the biopsy results from biopsy during endoscopy. 5. Please go to the nearest ER if you have any blood in stool, black tarry stools, or any other unusual signs/symptoms. At this time I would like to thank Dr. Sinha for seeing the patient, doing the necessary procedures, and providing clinical recommendations. The patient was seen in collaboration with Dr. Hardin. Home Meds Active Scripts Metronidazole* (Flagyl*) 500 Mg Tablet, 500 MG PO BID for 7 Days, #14 TAB Prov:ABIOLA GUALLPA NP 02/19/19 Omeprazole* (Omeprazole*) 40 Mg Capsule., 40 MG PO DAILY, #30 CAP Prov:ABIOLA GUALLPA SOCIETY EDITOR 02/19/19 Discontinued Reported Medications [Vitamins Daily] No Conflict Check 12/13/14 Follow-up Plan Min Sinha MD Specialty: Gastroenterology Office Address [address] [place], [place] [id number] Office Primary Care Provider Not On Staff Doctor Time spent on discharge: > 30 minutes Pending Labs Stool Giardia Antigen: Detected. Laboratory Tests Test 02/19/19 05:46 02/19/19 05:47 02/19/19 11:48 Sodium Level 144 mmol/L (135-144) Potassium Level 3.6 mmol/L (3.5-5.1) Chloride Level 107 mmol/L (97-110) Carbon Dioxide 24 mmol/L (21-31) Level Anion Gap 13 (5-13) Blood Urea Nitrogen 6 mg/dl (7-20) Creatinine 0.68 mg/dl (0.61-1.24) Est Glomerular > 60 mL/min (>60) Filtrat Rate mL/min Glucose Level 91 mg/dl (70-220) Calcium Level 9.0 mg/dl (8.4-10.2) Phosphorus Level 3.9 mg/dl (2.5-4.9) Magnesium Level 2.1 mg/dl (1.7-2.5) Total Bilirubin 0.5 mg/dl (0.2-1.3) Direct Bilirubin 0.00 mg/dl (0.00-0.20) Indirect Bilirubin 0.5 mg/dl (0-1.1) Aspartate Amino 25 IU/L (15-46) Transf (AST/SGOT) Alanine 31 IU/L (13-69) Aminotransferase (A LT/SGPT) Alkaline 49 IU/L (42-121) Phosphatase Total Protein 6.3 g/dl (6.1-8.1) Albumin 3.7 g/dl (3.3-4.9) Globulin 2.60 g/dl (1.3-3.2) Albumin/Globulin 1.42 Ratio White Blood Count 3.8 10^3/ul (4.8-10.8) Red Blood Count 3.66 10^6/ul (4.70-6.10 ) Hemoglobin 10.9 g/dl (14.0-18.0) Hematocrit 32.6 % (42.0-52.0) Mean Corpuscular 89.1 Volume fl (82.0-101.0) Mean Corpuscular 29.8 Hemoglobin pg (29.0-33.0) Mean Corpuscular 33.4 Hemoglobin Concent g/dl (32.0-37.0) Red Cell 12.1 % (11.5-14.5) Distribution Width Platelet Count 191 10^3/UL (140-415) Mean Platelet 10.2 fl (7.4-10.4) Volume Immature 0.000 Granulocytes % % (0.001-0.429) Neutrophils % 56.0 % (39.0-77.0) Lymphocytes % 31.2 % (15.0-51.0) Monocytes % 6.5 % (0.0-11.0) Eosinophils % 5.8 % (0.0-7.0) Basophils % 0.5 % (0.0-2.0) Nucleated Red Blood 0.0 Cells % /100WBC (0.0-0.0) Immature 0.000 Granulocytes # 10^3/ul (0.0-0.031 ) Neutrophils # 2.1 10^3/ul (1.6-7.5) Lymphocytes # 1.2 10^3/ul (0.8-2.9) Monocytes # 0.3 10^3/ul (0.3-0.9) Eosinophils # 0.2 10^3/ul (0.0-0.5) Basophils # 0.0 10^3/ul (0.0-0.1) Nucleated Red Blood 0.0 Cells # 10^3/ul (0.0-0.0) Lab Scanned Report [facility] [id number] ABIOLA GUALLPA NP Feb 19, 2019 12:50
== END 2019-02-19 14:05 | disposition home or self-care (01) | DRG 378 ==
LOC: E/R 16:35 → PP2 22:59
PROVIDERS: ADMIT Family Medicine; ATTEND Family Medicine
PROC: 30233N1 Transfusion of Nonautologous Red Blood Cells into Peripheral Vein, Percutaneous Approach (ICD-10-PCS; principal; 2019-02-17)
PROC: 0DJD8ZZ Inspection of Lower Intestinal Tract, Via Natural or Artificial Opening Endoscopic (ICD-10-PCS; 2019-02-18)
PROC: 0DB68ZX Excision of Stomach, Via Natural or Artificial Opening Endoscopic, Diagnostic (ICD-10-PCS; 2019-02-18 12:30)
DX: K57.31 Diverticulosis of large intestine without perforation or abscess with bleeding (principal); D62 Acute posthemorrhagic anemia; A07.1 Giardiasis [lambliasis]; K44.9 Diaphragmatic hernia without obstruction or gangrene; K25.9 Gastric ulcer, unspecified as acute or chronic, without hemorrhage or perforation; K64.9 Unspecified hemorrhoids; E86.0 Dehydration
CPT/HCPCS: 36415; 36430; 71045; 74177; 80053; 80061; 81003; 82270; 83036; 83605; 83735; 84100; 84443; 84484; 85025; 85610; 85730; 86021; 86674; 86850; 86900; 86901; 86920; 87040; 87045; 87086; 87177; 87205; 88305; 93005; J0744; J2543; J3010; J7030; P9016; Q9967

== ENCOUNTER 2019-08-22 05:55 | Emergency (ER) | payer BC ==
[~2019-08-22] VITALS: Ht 167.6 cm; Wt 61.8 kg
[~2019-08-22 05:55] MED LIST changes: +METR500T PO; +NAPR-985 PO; +OMEP40CA38 PO; +TRAM50TA2 PO; -VITAMINS DAILY
[2019-08-22 05:59] VITALS: BP 166/81; PULSE 71; RESP 21; Ht 167.6 cm; Wt 61.8 kg
[2019-08-22] MEDS ORDERED: KETOROLAC 30 MG INJ IM STA (06:08)
== END 2019-08-22 06:49 | disposition home or self-care (01) ==
LOC: FTE 05:55
DX: M25.552 Pain in left hip (principal); M54.5 Low back pain
CPT/HCPCS: 96372; 99284; J1885